=== PATIENT | male | born 1990 | race Caucasian/White ===

== ENCOUNTER 2020-05-18 16:59 | Outpatient (REF) | payer OTHER, SELFPAY ==
--- NOTE | ~2020-05-18 | XR_ITS ---
EXAMINATION: XR LUMBOSACRAL SPINE CLINICAL INFORMATION: Low back pain. COMPARISON: None TECHNIQUE: Three views of the lumbosacral spine. FINDINGS: There is maintained lumbar lordosis with minimal loss of L5-S1 and L4-L5 disc heights. Rest of the disc heights, vertebral heights and alignment are normal. No visible acute fracture, dislocation or lytic process seen. The paravertebral soft tissues are normal. XR/XR lumbar spine 2-3V IMPRESSION: Mild degenerative disc changes L4-L5 and L5-S1 disc level.
== END 2020-05-18 17:00 | disposition home or self-care (01) ==
LOC: HO.XRAY 16:59
PROVIDERS: PCP Internal Medicine; Visit Provider Nurse Practitioner Family
DX: M54.5 Low back pain (principal)
CPT/HCPCS: 72100

== ENCOUNTER → 2021-10-22 13:51 | Outpatient (BNVA) | payer OTHER, SELFPAY | PROVIDERS: PCP Internal Medicine; Visit Provider Surgery | DX: L72.9 Follicular cyst of the skin and subcutaneous tissue, unspecified (principal) | CPT/HCPCS: 99202 ==

== ENCOUNTER 2021-11-15 07:29 | Outpatient (REF) | payer OTHER, SELFPAY ==
[2021-11-15 07:42] VITALS: BMI 25.9
[2021-11-15 07:43] VITALS: BP 135/79; PULSE 51; RESP 16; TEMP 36.4; O2SAT 99
--- NOTE | 2021-11-15 08:15 | W.PM.OPN ---
Operative Note Operative Note Date of Service: 11/15/21 Narrative: Preop diagnosis: Scalp cyst Postop diagnosis: Scalp lipoma Procedure: Excision of scalp lipoma under local anesthesia Surgeon: Ez Booth MD The patient is a 31-year-old male who had a on the scalp on the right frontal area. He wanted it removed. He understood the technique of excision under local anesthesia. He was aware of the risks, benefits, and alternatives. He was brought to the minor procedure room and placed in reclining position. The area of the mass was prepped and draped in the usual sterile fashion. A surgical time-out was done. I used lidocaine 1% to infiltrate the area of the mass. I used a blade 15 to make the incision on the skin overlying this lump and this was carried down through the full-thickness of skin. A lipomatous mass was then immediately visualized. I sharply dissected this off of the rest of the subcutaneous layer using fine scissors until this was delivered. This was a 1 cm spherical shaped lipoma. This was sent as specimen. I closed the incision with full-thickness nylon 3-0 interrupted sutures. Bacitracin ointment was applied clear He tolerated Theprocedure well. There were no complications. There was minimal blood loss. He was given wound care instructions.
== END 2021-11-15 07:30 | disposition home or self-care (01) ==
LOC: HO.MS 07:29
PROVIDERS: PCP Internal Medicine; Visit Provider Surgery
PROC: (CPT 11422; principal; 2021-11-15 08:00)
DX: L72.11 Pilar cyst (principal)
CPT/HCPCS: 11422; 88304

== ENCOUNTER 2021-11-26 08:29 | Outpatient (REF) | payer OTHER, SELFPAY ==
--- NOTE | ~2021-11-26 | US_ITS ---
EXAMINATION: US ABDOMEN COMPLETE CLINICAL INFORMATION: Elevated LFTs. COMPARISON: None. TECHNIQUE: Real-time imaging of the abdominal viscera. FINDINGS: PANCREAS: Normal. ABDOMINAL AORTA: Limited visualization due to shadowing from overlying bowel gas. INFERIOR VENA CAVA: Visualized portions are normal. LIVER: The liver is normal in size. The liver contour is normal. Increased echogenicity. No focal hepatic lesion. There is no intrahepatic biliary duct dilatation seen. GALLBLADDER: Normal. The gallbladder is physiologically distended without evidence of stones, sludge, polyps, wall thickening or pericholecystic fluid. COMMON BILE DUCT: Normal in caliber measuring 0.2 cm in diameter. RIGHT KIDNEY: There is a 0.5 cm calculus in the lower pole. No hydronephrosis or focal parenchymal lesions. The kidney measures 11.1 cm in maximum dimension. LEFT KIDNEY: Normal. No hydronephrosis. No renal calculi or focal parenchymal lesions. The kidney measures 11.4 cm in maximum dimension. SPLEEN: Normal. The spleen measures 10.7 cm in maximum dimension. FREE FLUID: None. US/US abdomen complete IMPRESSION: 1. Nonobstructive calculus in the lower right kidney. 2. Increased liver parenchymal echogenicity suggesting hepatic steatosis or less likely hepatocellular disease.
== END 2021-11-26 08:30 | disposition home or self-care (01) ==
LOC: HO.US 08:29
PROVIDERS: Visit Provider Internal Medicine
DX: R79.89 Other specified abnormal findings of blood chemistry (principal)
CPT/HCPCS: 76700

== ENCOUNTER → 2021-12-17 10:47 | Outpatient (BNVA) | payer OTHER, SELFPAY | PROVIDERS: PCP Internal Medicine; Visit Provider Surgery | DX: Z48.1 Encounter for planned postprocedural wound closure (principal); Z87.2 Personal history of diseases of the skin and subcutaneous tissue | CPT/HCPCS: 99211 ==

== ENCOUNTER 2023-01-10 13:05 | Outpatient (AMB) | payer OTHER, SELFPAY ==
[2023-01-10 13:15] VITALS: BP 124/68; PULSE 50; O2SAT 98; BMI 25.8
--- NOTE | 2023-01-10 13:15 | MHC.PC.OV ---
Vital Signs 01/10/23 13:15 Height 6 ft 2 in Weight 201 lb BMI 25.8 BP 124/68 Blood Pressure Location Lt brachial Position Sitting Pulse 50 Pulse Source Pulse Oximeter Pulse Oximetry (%) 98 Oxygen Delivery Method Room Air Intake Visit Reasons: PE Allergies No Known Allergies Allergy (Mild, Verified 01/10/23 13:15) NOT APPLICABLE Medication List - Last Reconciled 01/10/23 by Vicky Rivas MD bee pollen mg PO multivitamin 1 tab PO DAILY omega 0-wli-xpn-fish oil 300-1,000 mg (Fish Oil) 1 cap PO DAILY Tobacco use date assessed: 01/10/23 Dental Screening Dental Screen Date: 01/10/23 Did you have a dental visit in the last 12 months?: Yes Did you have a dental problem in the last 6 months where you did not have access to dental care?: No Was dental information given to patient?: Patient has dentist HPI PE HPI Details 32-year-old male with a history of nephrolithiasis, pillar cyst of the scalp status post surgery 2021 hypertriglyceridemia fatty liver last seen in December 2021. Patient is here for physical exam. was not seen by urologist-- water and apple cider vinegar- ? paSSING stone? R sided chest pain radiating to the back, no rash. stopped taking tums? [facility] Medical History (Updated 01/10/23 @ 13:36 by Vicky Rivas MD) Scalp cyst LFT elevation Lower back pain Surgical History Finger fracture, left Family History (Updated 01/10/23 @ 13:38 by Vicky Rivas MD) Father Alcohol abuse Mother Melanoma Social History (Updated 01/10/23 @ 13:39 by Vicky Rivas MD) Housing: House Alcohol intake: current Patient Tobacco Use Status: Never used Tobacco Years Smoked: smokes Marijuana e-Cigarette/Vaping Use: Never Used Second Hand Smoke Exposure: No service: No Current occupational status: other Current occupation: Self-Employed Cognitive needs: No Hearing needs: No Vision needs: No Questionnaire PHQ-9 Over the last 2 weeks, how often have you been bothered by any of the following problems? 1. Little interest or pleasure in doing things: not at all 2. Feeling down, depressed, or hopeless: not at all 3. Trouble falling or staying asleep, or sleeping too much: not at all 4. Feeling tired or having little energy: not at all 5. Poor appetite or overeating: not at all 6. Feeling bad about yourself - or that you are a failure or have let yourself or your family down: not at all 7. Trouble concentrating on things, such as reading the newspaper or watching television: not at all 8. Moving or speaking so slowly that other people could have noticed. Or the opposite - being so fidgety or restless that you have been moving around a lot more than usual: not at all 9. Thoughts that you would be better off or of hurting yourself in some way: not at all Total score: 0 Depression Screening Interpretation: Negative Depression Screening Done: Yes Source: Developed by Drs. Parmjit Denis, Vee Richard, João Don and colleagues, with an educational giana from [employer]. Thrive Questionnaire Date Thrive assessed: 01/10/23 I am a: Patient What is your living situation today?: I have a steady place to live Within the past 12 months, did the food you bought not last and you didn't have the money to get more?: Never true Within the past 12 months, did you worry whether your food would run out before you got money to buy more?: Never true Do you have trouble paying for medicines?: No Do you have trouble getting transportation to medical appointments?: No Do you have trouble paying your heating and electricity bill?: No Do you have trouble taking care of your child, family member or friend?: No Do you have trouble with day-to-day activities such as bathing, preparing meals, shopping, managing finances, etc.?: No Are you currently unemployed and looking for a job?: No Are you interested in more education?: No Currently or been in a relationship where the following occur: no concerns reported AUDIT C Alcohol Use Questionnaire (AUDIT-C) 1. How often do you have a drink containing alcohol?: 2-3 times a week 2. How many drinks containing alcohol do you have on a typical day when you are drinking?: 3 or 4 3. How often do you have six or more drinks on one occasion?: Less than monthly Total Score: 5 STEVE-7 AMB Questionnaire STEVE-7 Date STEVE - 7 assessed: 01/10/23 Feeling nervous, anxious, or on edge: 0 = Not at all Not being able to stop or control worryin = Not at all Worrying too much about different things: 0 = Not at all Trouble relaxin = Not at all Being so restless that it is hard to sit still: 0 = Not at all Becoming easily annoyed or irritable: 0 = Not at all Feeling afraid as if something awful might happen: 0 = Not at all Total STEVE-7 score (0-4 normal; 5-9 mild; 10-14 moderate; 15-21 severe): 0 Source: Developed by Drs. Parmjit Denis, Vee Richard, João Don and colleagues, with an educational giana from [employer]. Review of Systems Const Denies poor appetite and Denies weakness Eyes Denies no additional complaints ENT Reports Normal hearing present, Denies dizziness, Denies nasal congestion, Denies tinnitus and Denies sore throat Card Denies chest pain, Denies syncope, Denies rapid heart rate and Denies dyspnea Resp Denies cough and Denies dyspnea GI Denies change in stool character, Reports constipation, Denies diarrhea, Denies nausea and Denies vomiting Denies dysuria and Denies urinary frequency Neuro Reports Normal hearing present, Denies confusion, Denies dizziness, Denies syncope and Denies weakness Psych Denies confusion Physical exam (Primary Care) Vital Signs: Last Vital Signs Pulse 50 01/10/23 13:15 BP 124/68 01/10/23 13:15 Pulse Ox 98 01/10/23 13:15 Oxygen Delivery Method Room Air 01/10/23 13:15 BMI result Body Mass Index 25.8 Tobacco/Smoking Status: Tobacco use Status Tobacco use date assessed 01/10/23 01/10/23 13:21 Patient Tobacco Use Status Never used Tobacco 01/10/23 13:21 e-Cigarette/Vaping Use Never Used 01/10/23 13:21 PHQ-9: PHQ-9 Score PHQ-9: Total score 0 01/10/23 13:21 Depression Screening Interpretation: Negative Thrive Assessment: Date of Thrive Assessment Date Thrive assessed 01/10/23 01/10/23 13:21 Currently or been in a relationship where the following occur: no concerns reported Const General: alert and awake; No confusion Orientation/consciousness: No confusion HENMT Head: Yes normocephalic Ears: external ears normal and TM's normal bilaterally Face and sinus: Yes normal facial exam Mouth: moist mucous membranes Throat: Yes tonsils normal Eyes Conjunctivae: conjunctivae normal Pupils: Equal, round and reactive pupils present and Pupil accommodation reflex normal Direct Ophthalmoscopy: normal light reflex Neck Neck: No lymphadenopathy Thyroid: Thyroid normal Chest Chest palpation & inspection: normal inspection of the chest Resp Effort & Inspection: normal respiratory effort and no audible wheezes Auscultation: clear to auscultation bilaterally, no crackles, no wheezes and lung sounds not diminished Cardio Rate: regular rate Rhythm: regular rhythm Peripheral pulses: radial pulses present and dorsalis pedis present GI Palpation (GI): no masses Auscultation: normal bowel sounds and normoactive bowel sounds Rectal Exam - Male: Yes deferred Skin General skin exam: no rashes or lesions noted Rashes: no rashes Neuro General: deep tendon reflexes 2+ bilaterally and No confusion Cranial nerves: Yes Equal, round and reactive pupils present, Yes Midline tongue present, Yes Normal hearing present and Yes Ability to bilaterally elevate shoulders present Cognition (Neuro): normal cognition Gait exam (Neuro): Normal gait present Motor exam (neuro): 5/5 motor strength present throughout Deep tendon reflexes (DTR's): Right brachioradialis reflex intensity grade: 2+, Left brachioradialis reflex intensity grade: 2+, Right patellar reflex intensity grade: 2+ and Left patellar reflex intensity grade: 2+ Extrem General: No edema Assessment and Plan Assessment & Plan (1) Annual physical exam: Code(s): Z00.00 - Encounter for general adult medical examination without abnormal findings (2) Right renal stone: Comment: November 2021 Code(s): N20.0 - Calculus of kidney Plan: Keep well hydrated (3) Fatty liver: Comment: November 2021 Code(s): K76.0 - Fatty (change of) liver, not elsewhere classified Plan: Low-fat diet and exercise (4) Hypertriglyceridemia: Code(s): E78.1 - Pure hyperglyceridemia Plan: Avoid fried foods, chicken skin, eggs, butter margarine, pastries and meat. Be it pork or beef they have a lot of cholesterol LDL goal of less than 130 and triglyceride of less than 150 (5) Lower back pain: Code(s): M54.5 - Low back pain Qualifiers: Chronicity: acute Back pain laterality: bilateral Sciatica presence: without sciatica Qualified Code(s): M54.5 - Low back pain Plan: history of seeing [facility] and was told disc herniation L4-5th- is astive and does exercise but still having back pain (6) Family history of melanoma: Code(s): Z80.8 - Family history of malignant neoplasm of other organs or systems Orders: Orders US renal BI Today N20.0 - Calculus of kidney Complete Blood Count Auto Diff Today E78.1 - Pure hyperglyceridemia Free T4 (Free Thyroxine) Today E78.1 - Pure hyperglyceridemia Comprehensive Met. Panel Today E78.1 - Pure hyperglyceridemia Thyroid Stimulating Hormone Today E78.1 - Pure hyperglyceridemia Vitamin B12 and Folate Today E78.1 - Pure hyperglyceridemia Lipid Panel Today E78.00 - Pure hypercholesterolemia, unspecified, E78.1 - Pure hyperglyceridemia UA w Microscopic Today N20.0 - Calculus of kidney XR lumbar spine 4V min Today M54.5 - Low back pain Referrals Dermatology Referral Z80.8 - Family history of malignant neoplasm of other organs or systems Coding Level of Care Code Est Pt Prev Care [id number]) Diagnoses Annual physical exam Z00.00 Right renal stone N20.0 Fatty liver K76.0 Hypertriglyceridemia E78.1 Acute bilateral low back pain without sciatica M54.5 Chronicity: acute Back pain laterality: bilateral Sciatica presence: without sciatica Family history of melanoma Z80.8
== END 2023-01-10 13:59 | disposition home or self-care (01) ==
PROVIDERS: Visit Provider Internal Medicine
DX: Z00.00 Encounter for general adult medical examination without abnormal findings (principal); N20.0 Calculus of kidney; K76.0 Fatty (change of) liver, not elsewhere classified; E78.1 Pure hyperglyceridemia; M54.50 Low back pain, unspecified; Z80.8 Family history of malignant neoplasm of other organs or systems
CPT/HCPCS: 99395